=== PATIENT | female | born 1995 | race Hispanic/Latino ===

== ENCOUNTER 2024-08-16 13:32 | Emergency (ER) | payer BC, SELFPAY ==
[2024-08-16 13:35] VITALS: BP 117/72
[2024-08-16 14:26] LABS: % Basophils 0.7 % (0-2); % Eosinophils 1.4 % (0-6); % Immature Granulocytes 0.2 % (0-0.5); % Lymphocytes 29.8 % (20.5-51.1); % Monocytes 7.8 % (1.7-9.3); % Neutrophils 60.1 % (42.2-75.2); Absolute Eosinophils 0.1 10^3/uL (0-0.7); Absolute Lymphocytes 1.8 10^3/uL (1.2-3.4); Absolute Monocytes 0.5 10^3/uL (0.1-0.6); Absolute Neutrophils 3.5 10^3/uL (1.4-6.5); Hematocrit 36.4 % (37.0-47.0); Hemoglobin 11.9 g/dL (12.0-16.0); Mean Corp Hgb Conc. 32.7 g/dL (33.0-37.0); Mean Corpuscular Hgb 27.5 pg (27.0-31.0); Mean Corpuscular Volume 84.3 fL (81.0-99.0); Mean Platelet Volume 11.3 fL (7.4-10.4); Nucleated Red Blood Cells % 0 %; Platelet Count 216 10^3/uL (130-400); Red Blood Cell Count 4.32 10^6/uL (4.20-5.40); Red Cell Dist. Width 13.6 % (11.5-14.5); White Blood Cell Count 5.9 10^3/uL (4.8-10.8)
[2024-08-16 14:34] LABS: HCG, Serum Qualitative Screen Negative
--- NOTE | 2024-08-16 14:35 | ED.GENMED ---
History of Present Illness
General
Chief Complaint: Abdominal Pain
Time Seen by Provider: 08/16/24 14:24
History of Present Illness
History of Present Illness:
29-year-old female presents the emergency department for evaluation of right upper quadrant pain that woke her from sleep early this morning. States that approximately 10 years ago she had similar pain and was diagnosed with 'gallbladder polyps',
she notes she has frequent episodes like this that occur multiple times per year. They are frequently perimenstrual in nature but do not occur with every menstrual cycle. Denies any fevers but does have some chills. No nausea, vomiting, or
diarrhea this morning. No prior history of abdominal surgeries. She is due for her menstrual cycle within the next several days
Review of Systems
Review of Systems
Allergies reviewed?: Yes
All Other Systems: ROS reviewed and negative except as documented in HPI and ROS
Phy Exam
Physical Exam
Physical Exam:
GEN: Well appearing, NAD, WDWN
HEENT: Oral mucosa moist, no scleral icterus
Cardiac: Regular rate
Lung: No respiratory distress, no tachypnea
Abdomen: Soft, focal right upper quadrant tenderness, no rigidity or masses, no CVA tenderness
MSK: No gross deformity or injuries
Skin: Good color, no pallor or jaundice, no rashes
Neuro: AO x3, moves all extremities freely
Psych: Calm, cooperative
Course
Orders/Labs/Results
Orders:
Orders
08/16/24 13:38
Test Result ONCE
08/16/24 13:45
Complete Blood Count/With Diff Urgent
Comprehensive Metabolic Panel Urgent
HCG, Serum Qualitative Screen Urgent
Lipase Urgent
08/16/24 14:35
US Abdomen Complete/Upper Urgent
Comment:
Reason For Exam: RUQ pain
Abnormal Lab Results
08/16/24
13:45
Hgb 11.9 L g/dL
(12.0-16.0)
Hct 36.4 L %
(37.0-47.0)
MCHC 32.7 L g/dL
(33.0-37.0)
MPV 11.3 H fL
(7.4-10.4)
Creatinine 0.5 L mg/dL
(0.6-1.0)
08/16/24 13:45
08/16/24 13:45
Vital Signs
Initial and Last Documented VS:
Initial Vital Signs
Temp Pulse Resp BP Pulse Ox
98.2 F 88 16 117/72 100
08/16/24 13:35 08/16/24 13:35 08/16/24 13:35 08/16/24 13:35 08/16/24 13:35
Last Documented Vital Signs
Temp Pulse Resp BP Pulse Ox
98.2 F 81 14 95/64 100
08/16/24 13:35 08/16/24 15:24 08/16/24 15:24 08/16/24 15:24 08/16/24 15:24
MDM/Problems Addressed
MDM/Problems Addressed:
Do not feel that the gallbladder polyps represent a source the patient's pain. Certainly could be biliary colic in the absence of stones versus alternative GI pathology. Will recommend GI follow-up as an outpatient
*Critical Care Note
Total Time (30-74mins, 75-104mins- exclusive of procedures): Not Applicable
ED Attending Note
-
Portions of this chart may have been created with voice recognition software.� Occasional wrong word or��sound alike� substitutions may have occurred due to the inherent limitations of voice recognition software.
Discharge Plan
Departure
Patient Disposition: Home (Routine Discharge)
Date of Disposition: 08/16/24
Time of Disposition: 16:31
Patient with high blood pressure during this ER visit?: No
Discharge Problem:
Right upper quadrant abdominal pain
Instructions: Low-fat diet
Prescriptions:
New
dicyclomine 20 mg tablet
20 mg PO TID PRN (Reason: abdominal pain) Qty: 15 0RF
Referrals:
Deepali Quinones MD [Active] -
Activity Restrictions/Additional Instructions:
Please schedule a follow up with our gastroenterology team to further evaluate this intermittent pain
Try the medication I have prescribed you when pain increases in severity
Interventions
Interventions:
*Risk Screen - Suicide Last Done: 08/16/24 13:35
*General Assessment Last Done: 08/16/24 13:35
*Neglect/Abuse Screening Last Done: 08/16/24 16:49
*Nursing Disposition Last Done: 08/16/24 16:49
TC-Lxtzys-Nmelwjotap Assessment Last Done: 08/16/24 14:35
Discharge Date and Time
Discharge Date/Time: 08/16/24 16:49
Print Language: [id number]
[2024-08-16 14:39] LABS: ALT (SGPT) 12 U/L (0-35); AST (SGOT) 19 U/L (14-36); Albumin 4.6 g/dl (3.5-5.0); Alkaline Phosphatase 57 U/L (38-126); Blood Urea Nitrogen 12 mg/dl (7-17); Calcium 9.8 mg/dl (8.4-10.2); Carbon Dioxide 23 mmol/L (22-30); Chloride 107 mmol/L (98-107); Glucose 84 mg/dl (70-99); Potassium 4.3 mmol/L (3.5-5.1); Sodium 139 mmol/L (135-145); Total Bilirubin 0.8 mg/dl (0.2-1.3); Total Protein 6.8 g/dl (6.3-8.2); eGFR > 60.00
[2024-08-16 15:18] LABS: Lipase 82 U/L (23-300)
[2024-08-16 15:24] VITALS: BP 95/64
== END 2024-08-16 16:49 | disposition home or self-care (01) ==
LOC: EMR 13:32
PROVIDERS: EMERGENCY PHYSICIAN Emergency Medicine
DX: R10.11 Right upper quadrant pain (principal)
CPT/HCPCS: 99284; 76700; 80053; 83690; 84703; 85025